=== PATIENT | female | born 1985 | race Caucasian/White ===

== ENCOUNTER 2017-09-07 04:30 | Emergency (ER) | payer MEDICAID ==
[~2017-09-07] VITALS: Ht 167.6 cm; Wt 106.0 kg
[~2017-09-07 04:30] MED LIST: PRENCAP6 PO
[2017-09-07 04:33] VITALS: BP 144/95; PULSE 126; RESP 20; TEMP 98.9; O2SAT 99
--- NOTE | 2017-09-07 04:57 | PD ---
HPI Chief Complaint: Abdominal Pain Time Seen by Provider: 04:39 Travel History International Travel<30 days: No Contact w/Intl Traveler<30days: No Traveled to known affect area: No History of Present Illness HPI The patient is a 32-year-old female, G2, P2, A0 who complains of a bilateral pelvic pain for about 24 hours. The pain is both on the left and the right suprapubically. She denies any fever but does have nausea without vomiting. She has had a tubal ligation. She denies any dysuria, frequency or urgency. She denies any vaginal discharge. She had diarrhea 2 days ago. She denies any blood in the stool. [facility] Past Medical History Diminished Hearing: No Tetanus Vaccination: < 5 Years Influenza Vaccination: No ?: Not LMP: 09/01/17 Past Surgical History Cholecystectomy: Yes Gynecologic Surgery: Yes (tubal ligation) Social History Alcohol Use: No Tobacco Use: No Substance Use: No Allergies-Medications (Allergen,Severity, Reaction): Coded Allergies: No Known Allergies (Verified Adverse Reaction, Unknown, 09/07/17) Reported Meds & Prescriptions Reported Meds & Active Scripts Active No Active Prescriptions or Reported Medications Review of Systems Except as stated in HPI: all other systems reviewed are Neg Physical Exam Narrative GENERAL: The patient is alert, oriented 3 in slight apparent distress with her bilateral pelvic pain. The patient is anxious appearing. The pulse is 126 with blood pressure 144/95 but the rest of the vital signs are normal. SKIN: Focused skin assessment warm/dry. HEAD: Atraumatic. Normocephalic. EYES: Pupils equal and round. No scleral icterus. No injection or drainage. ENT: No nasal bleeding or discharge. Mucous membranes pink and moist. NECK: Trachea midline. No JVD. CARDIOVASCULAR: Regular rate and rhythm. No murmur appreciated. RESPIRATORY: No accessory muscle use. Clear to auscultation. Breath sounds equal bilaterally. GASTROINTESTINAL: Abdomen soft, non-tender, nondistended. Hepatic and splenic margins not palpable. MUSCULOSKELETAL: No obvious deformities. No clubbing. No cyanosis. No edema. NEUROLOGICAL: Awake and alert. No obvious cranial nerve deficits. Motor grossly within normal limits. Normal speech. PSYCHIATRIC: Appropriate mood and affect; insight and judgment normal. GENITOURINARY: Normal external genitalia without lesions or erythema. Vaginal vault without blood and there is a slight off-white, [id number] drainage. Cervical os was closed without drainage. No cervical motion tenderness. Uterus nontender and nonenlarged. Bilateral adnexa nontender without masses. Data Data Last Documented VS Vital Signs Date Time Temp Pulse Resp B/P (MAP) Pulse Ox O2 Delivery O2 Flow Rate FiO2 09/07/17 06:11 88 18 140/76 (97) 99 Room Air 09/07/17 04:33 98.9 Orders Orders Beta Hcg (Quant/Titer) (09/07/17 05:18) Complete Blood Count With Diff (09/07/17 05:18) Basic Metabolic Panel (Bmp) (09/07/17 05:18) Gc And Chlamydia Pcr (09/07/17 05:18) Wet Prep Profile (09/07/17 05:18) Urinalysis - C+S If Indicated (09/07/17 05:18) Ct Abd/Pel W Iv Contrast(Rout) (09/07/17 05:28) Lipase (09/07/17 05:18) Iohexol 350 Inj (Omnipaque 350 Inj) (09/07/17 06:14) Labs Laboratory Tests Test 09/07/17 05:20 09/07/17 05:55 White Blood Count 10.9 TH/MM3 Red Blood Count 4.29 MIL/MM3 Hemoglobin 11.6 GM/DL Hematocrit 36.5 % Mean Corpuscular Volume 85.2 FL Mean Corpuscular Hemoglobin 26.9 PG Mean Corpuscular Hemoglobin Concent 31.6 % Red Cell Distribution Width 16.6 % Platelet Count 261 TH/MM3 Mean Platelet Volume 9.4 FL Neutrophils (%) (Auto) 71.4 % Lymphocytes (%) (Auto) 19.5 % Monocytes (%) (Auto) 5.7 % Eosinophils (%) (Auto) 0.4 % Basophils (%) (Auto) 3.0 % Neutrophils # (Auto) 7.9 TH/MM3 Lymphocytes # (Auto) 2.1 TH/MM3 Monocytes # (Auto) 0.6 TH/MM3 Eosinophils # (Auto) 0.0 TH/MM3 Basophils # (Auto) 0.3 TH/MM3 CBC Comment DIFF FINAL Differential Comment Urine Color YELLOW Urine Turbidity CLEAR Urine pH 6.0 Urine Specific [place] 1.020 Urine Protein NEG mg/dL Urine Glucose (UA) NEG mg/dL Urine Ketones NEG mg/dL Urine Occult Blood MOD Urine Nitrite NEG Urine Bilirubin NEG Urine Urobilinogen 0.2 MG/DL Urine Leukocyte Esterase NEG Urine RBC 3-5 /hpf Urine WBC 0-2 /hpf Urine Squamous Epithelial Cells 0-5 /hpf Urine Bacteria NONE /hpf Microscopic Urinalysis Comment CULT NOT INDICATED Clue Cells (Wet Prep) NONE SEEN Vaginal Trichomonas (Wet Prep) NONE SEEN Vaginal Yeast (Wet Prep) NONE SEEN Blood Urea Nitrogen 10 MG/DL Creatinine 0.78 MG/DL Random Glucose 98 MG/DL Calcium Level 8.6 MG/DL Sodium Level 141 MEQ/L Potassium Level 3.9 MEQ/L Chloride Level 108 MEQ/L Carbon Dioxide Level 27.1 MEQ/L Anion Gap 6 MEQ/L Estimat Glomerular Filtration Rate 86 ML/MIN Lipase 108 U/L Human Chorionic Gonadotropin, Quant LESS THAN 1 MIU/ML MDM Medical Decision Making Medical Screen Exam Complete: Yes Emergency Medical Condition: Yes Medical Record Reviewed: Yes Interpretation(s) The urinalysis shows moderate blood but is otherwise normal and cultures not indicated. The CBC is normal. The wet prep is negative for trichomonas, yeast and clue cells. Differential Diagnosis PID, ovarian cyst, urinary tract infection, pelvic pain etiology undetermined, musculoskeletal pain, diverticulitis Narrative Course The patient had an essentially negative pelvic exam. She does have nausea and her pain seems to be in the large bowel. The CT scan shows acute diverticulitis involving the mid descending colon. Fortunately there is no perforation, obstruction or abscess noted and the patient can be tried as an outpatient. She will be getting Cipro and Flagyl. If not better she will need to see a moisture meter operator. Alternatively, if worse, she may need to return to emergency department for admission. She also will be getting Percocet 5 for pain and prochlorperazine for nausea. She is to increase her liquid intake. Diagnosis Primary Impression: Acute diverticulitis Additional Instructions: As we discussed, increase clear liquids. If worse, you need to follow-up with a moisture meter operator or colorectal surgeon. He will probably have to see a primary care physician for referral before he do this. If you get fever and severe pain, simply return to emergency department and we will consider admission. Med/Other Pt SpecificInfo: Prescription(s) given Scripts Prochlorperazine Maleate (Prochlorperazine Maleate) 10 Mg Tab 10 MG PO Q6H Y for NAUSEA OR VOMITING, #21 TAB 0 Refills Prov: Sha Perez MD 09/07/17 Oxycodone-Acetaminophen (Percocet) 5-325 mg Tab 1 TAB PO Q6H Y for PAIN, #15 TAB 0 Refills Prov: Sha Perez MD 09/07/17 Metronidazole (Flagyl) 500 Mg Tab 500 MG PO TID for Infection, #30 TAB 0 Refills Prov: Sha Perez MD 09/07/17 Ciprofloxacin (Cipro) 500 Mg Tab 500 MG PO BID for Infection for 10 Days, #20 TAB 0 Refills Prov: Sha Perez MD 09/07/17 Disposition: 01 DISCHARGE HOME Condition: Stable Sha Perez MD Sep 07, 2017 04:57
[2017-09-07 05:42] LABS: BILIRUBIN, URINE NEG (NEG); BLOOD, URINE MOD (NEG); GLUCOSE,URINE NEG (NEG); KETONE, URINE NEG (NEG); NITRITE,URINE NEG (NEG); URINE COLOR YELLOW (YELLW/STRAW); URINE LEUKOCYTE ESTERASE NEG (NEG)
[2017-09-07 05:47] LABS: AUTOMATED NEUTROPHIL # 7.9 TH/MM3 (1.8-7.7); BASOPHIL # 0.3 TH/MM3 (0-0.2); EOSINOPHIL % 0.4 % (0.0-4.0); HEMATOCRIT 36.5 % (35.0-46.0); HEMOGLOBIN 11.6 GM/DL (11.6-15.3); LYMPH % 19.5 % (9.0-44.0); LYMPHOCYTE # 2.1 TH/MM3 (1.0-4.8); MEAN CELL VOLUME 85.2 FL (80.0-100.0); MEAN CORPUSCULAR HEMOGLOBIN 26.9 PG (27.0-34.0); MEAN CORPUSCULAR HGB CONC 31.6 % (32.0-36.0); MEAN PLATELET VOLUME 9.4 FL (7.0-11.0); MONO % 5.7 % (0.0-8.0); MONOCYTE # 0.6 TH/MM3 (0-0.9); NEUT % 71.4 % (16.0-70.0); PLATELET COUNT 261 TH/MM3 (150-450); RED BLOOD COUNT 4.29 MIL/MM3 (4.00-5.30); RED CELL DISTRIBUTION WIDTH 16.6 % (11.6-17.2); WHITE BLOOD COUNT 10.9 TH/MM3 (4.0-11.0)
[2017-09-07 05:54] LABS: SQUAMOUS EPITHELIAL CELL URINE 0-5 /hpf (0-5); WBC, URINE 0-2 /hpf (0-5)
[2017-09-07 06:11] VITALS: BP 140/76; PULSE 88; RESP 18; O2SAT 99
[2017-09-07] MEDS ORDERED: IOHEXOL 350 MG/ML 10 ML VIAL (for RAD DIAG) IVCONTRAST ONE (06:14)
[2017-09-07 06:17] LABS: CHLORIDE 108 MEQ/L (98-107); SODIUM (NA) 141 MEQ/L (136-145)
[2017-09-07 06:19] LABS: CALCIUM 8.6 MG/DL (8.5-10.1)
[2017-09-07 06:20] LABS: BICARBONATE 27.1 MEQ/L (21.0-32.0); BLOOD UREA NITROGEN 10 MG/DL (7-18); GLUCOSE,RANDOM 98 MG/DL (74-106)
[2017-09-07 06:23] LABS: CREATININE 0.78 MG/DL (0.50-1.00); GLOMERULAR FILTRATION RATE 86 ML/MIN (>89)
--- NOTE | 2017-09-07 06:25 | RADRPT ---
EXAM DATE/TIME: 09/07/2017 06:01 [place] COMPARISON: No previous studies available for comparison. INDICATIONS : Bilateral pelvic pain. IV CONTRAST: 100 cc Omnipaque 350 (iohexol) IV ORAL CONTRAST: No oral contrast ingested. RADIATION DOSE: 21.71 CTDIvol (mGy) MEDICAL HISTORY : None SURGICAL HISTORY : Tubal ligation. Cholecystectomy. ENCOUNTER: Initial ACUITY: 1 day PAIN SCALE: 8/10 LOCATION: Bilateral pelvis TECHNIQUE: Volumetric scanning of the abdomen and pelvis was performed. Using automated exposure control and ad justment of the mA and/or kV according to patient size, radiation dose was kept as low as reasonably achievable to obtain optimal diagnostic quality images. DICOM format image data is available electro nically for review and comparison. FINDINGS: LOWER LUNGS: The visualized lower lungs are clear. LIVER: Homogeneous density without lesion. There is no dilation of the biliary tree. Prior cholecystectomy. SPLEEN: Normal size without lesion. PANCREAS: Within normal limits. KIDNEYS: Normal in size and shape. There is no mass, stone or hydronephrosis. ADRENAL GLANDS: Within normal limits. VASCULAR: There is no aortic aneurysm. BOWEL/MESENTERY: There is mild stranding and circumferential wall thickening involving the mid descending colon. Diver ticula are noted in this area. No obstruction, perforation, or abscess. The remaining bowel structure s are unremarkable. No free air or free fluid. ABDOMINAL WALL: Within normal limits. RETROPERITONEUM: There is no lymphadenopathy. BLADDER: No wall thickening or mass. REPRODUCTIVE: Within normal limits. INGUINAL: There is no lymphadenopathy or hernia. MUSCULOSKELETAL: Within normal limits for patient age. CONCLUSION: 1. Acute diverticulitis involving the mid descending colon. No perforation, abscess, or obstruction. Amando Childress Jr., MD on September 07, 2017 at 6:22 Board Certified Radiologist. This report was verified electronically.
[2017-09-07] MEDS ORDERED: PROC10TA PO (06:47)
[2017-09-07] MEDS ORDERED: CIPR-9 PO (06:47)
[2017-09-07] MEDS ORDERED: METR-1 PO (06:47)
[2017-09-07] MEDS ORDERED: PERC5TAB12 PO (06:47)
[2017-09-07 06:59] VITALS: BP 122/78; PULSE 90; RESP 18; O2SAT 99
[2017-09-07] MEDS ORDERED: metroNIDAZOLE 500 MG TAB PO ONE (07:00)
[2017-09-07] MEDS ORDERED: CIPROFLOXACIN 500 MG TAB PO ONE (07:00)
== END 2017-09-07 07:10 | disposition home or self-care (01) ==
LOC: PHED 04:30
DX: K57.92 Diverticulitis of intestine, part unspecified, without perforation or abscess without bleeding (principal)
CPT/HCPCS: 74177; 80048; 81001; 83690; 84702; 85025; 87210; 87491; 87591; 99284; Q9967